=== PATIENT | male | born 1965 | race Caucasian/White ===

== ENCOUNTER 2017-09-29 08:56 | Day surgery (SDC) | payer OTHER ==
[2017-09-28 13:39] VITALS: BMI 32.6
[2017-09-29] MEDS ORDERED: LIDOCAINE HCL 1%, 10 MG/ML (20ML VIAL) ONE (10:21)
[2017-09-29] MEDS ORDERED: BUPIVACAINE HCL/PF 0.5% (5MG/ML) 10 ML VIAL ONE (10:21)
[2017-09-29] MEDS ORDERED: MIDAZOLAM HCL 2 MG/2 ML SINGLE DOSE VIAL ONE (10:27)
[2017-09-29] MEDS ORDERED: PROPOFOL 20 ML ONE ×3 (10:28→11:03)
[2017-09-29] MEDS ORDERED: LIDOCAINE HCL/PF 2% SDV 5ML VIAL ONE (10:28)
[2017-09-29] MEDS ORDERED: ceFAZolin SODIUM 1 GM VIAL IVPB ONE ×2 (10:40→10:45)
[2017-09-29] MEDS ORDERED: ceFAZolin SODIUM 1 GM VIAL ONE (10:43)
[2017-09-29] MEDS ORDERED: LIDOCAINE HCL 1%, 10 MG/ML (20ML VIAL) INF ONE (11:14)
[2017-09-29] MEDS ORDERED: BUPIVACAINE HCL/PF 0.5% (5MG/ML) 10 ML VIAL IJ ONE (11:14)
--- NOTE | 2017-09-29 11:21 | HP ---
DATE OF ADMISSION: HISTORY: The patient is a 52-year-old male with a history of painful erections due to phimosis and ventral curvature of the penis. The patient does have [id number] of diabetes mellitus. He does have urinary frequency as well as urgency. He wakes up one time at night. He claims he has diminished libido. He also has a history of a dyslipidemia. The patient has had recurrent balanitis and had several treatments with antifungals. He states it is difficult to retract the penis for cleansing purposes. Presently, he is on metformin, Glipizide, and atorvastatin. PHYSICAL EXAMINATION: Chest: Clear to auscultation and percussion. Heart: Regular rhythm. Abdomen: Globus. There is no CVA tenderness. Genitalia: Reveals normal testes with no hernias or hydroceles. Phallus reveals phimosis with a high-riding ventral scrotal insertion. Prostate is 2+, benign, nontender. Extremities: Show full range of motion with no clubbing, cyanosis, or edema. IMPRESSION: At present: 1. Phimosis. 2. Balanitis. 3. Penile chordee. PLAN: Undergo a penoplasty and circumcision. Pascual [id number]
[2017-09-29] MEDS ORDERED: HYDROmorphone HCL CARPU-JECT 2 MG/1 ML DISP.SYRIN IM ONE (11:28)
[2017-09-29] MEDS ORDERED: oxyCODONE HCL 5 MG TABLET PO PRN ×2 (11:31→11:37)
[2017-09-29] MEDS ORDERED: ACETAMINOPHEN 325 MG TABLET (FP) PO PRN (11:31)
[2017-09-29] MEDS ORDERED: ONDANSETRON 4 MG/2 ML VIAL IVPUSH PRN (11:37)
[2017-09-29 12:08] VITALS: TEMP 98.2
--- NOTE | 2017-09-29 12:59 | OP ---
DATE OF OPERATION: 09/29/2017 SURGEON: Shilpa Mejia MD PREOPERATIVE DIAGNOSIS: Penile chordee and recurrent balanitis and phimosis. POSTOPERATIVE DIAGNOSIS: Penile chordee and recurrent balanitis and phimosis. OPERATIVE PROCEDURE: Penoplasty and circumcision. ANESTHESIA: IV sedation and local penile block. OPERATIVE REPORT: Under above stated anesthesia, patient was prepped and draped in the usual sterile manner. He was placed in the supine position. The base of the penis was infiltrated with 12 mL of Marcaine for long-term analgesia. Tourniquet using a 0.25-inch Tej was placed at the base of the penis. A 25-gauge butterfly was placed into the base of the right corpora cavernosum. Normal saline was injected, and then, artificial erection was created. This revealed a downward ventral chordee due to high insertion of the scrotum on the ventral aspect of the penile shaft. An incision was made on the base of the penile shaft in the ventral aspect. This was carried down for 4 cm. The scrotal skin was then from the shaft of the penis. Excess skin was excised. The scrotum was then closed in 2 layers of 3-0 Vicryl suture ligature and 4-0 chromic mattress sutures. The skin on the penile shaft was approximated in a longitudinal fashion using 4-0 Vicryl suture stitches. This caused straightening and elongation of the penis after a repeat artificial erection was performed. Attention was then brought to the phimosis. Excess foreskin was taunted upwards with a clamp placed at the 6 and 12 o'clock positions. A Kwasi clamp was placed circumferentially at a 30-degree angle over the excess foreskin. The area below the crushed Kwasi clamp was excised with a 10-blade scalpel. Hemostasis was secured with electrocoagulation. Larger bleeders were ligated with 4-0 Vicryl ties. Skin from the glans and skin from the shaft was approximated using 4-0 chromic suture ligatures. A frenuloplasty was also performed by ligating the proximal and distal ends of the frenulum and placing 3-0 suture ligatures at the proximal and distal ends. The frenulum was excised. After the skin was approximated to the glans penis, a repeat artificial erection revealed a straight penile erection. No active bleeding was noted. Bacitracin, Telfa, and Coban was applied to keep pressure on the penile shaft. The patient tolerated the procedure well. He returned to the recovery room in good condition. SHILPA MEJIA M.D. [id number]
[2017-09-29 15:03] VITALS: BP 153/75; PULSE 78
--- NOTE | 2017-10-02 15:24 | PATH ---
Surgical Pathology Report Patient Name: KATHY UP [facility]. Rec. #: [id number] /Age/Gender: 1965 (Age: 52) / M Account: [id number] Location: [facility] SURGICAL Taken: 09/29/2017 Received: 09/29/2017 Reported: 10/02/2017 Physicians: Precious Espinal M.D. Specimen(s) Received FORESKIN Clinical History Phimosis Final Diagnosis FORESKIN, CIRCUMCISION: FORESKIN SHOWING MILD CHRONIC DERMAL INFLAMMATION AND FIBROSIS. Electronically Signed Geneva Weiss M.D. Gross Description Received in formalin labeled "foreskin," is a 4.5 x 2.4 x 1.4 cm fang, irregular, wrinkled portion of skin, consistent with foreskin. No discrete epidermal lesions are identified. Escapement Maker sections are submitted in one cassette. /09/29/201709/29/2017
== END 2017-09-29 13:30 | disposition home or self-care (01) ==
LOC: JASU-SURG 08:56
PROVIDERS: ATTEND Urology
PROC: 0VTTXZZ Resection of Prepuce, External Approach (ICD-10-PCS; principal; 2017-09-29 10:00)
DX: N47.1 Phimosis (principal); N48.89 Other specified disorders of penis; N48.1 Balanitis
CPT/HCPCS: 88302-TC; 94760